=== PATIENT | male | born 1985 | race Caucasian/White ===

== ENCOUNTER 2020-01-19 15:48 | Emergency (ER) | payer OTHER, SELFPAY ==
[2020-01-19] VITALS (17 sets, daily range): BP systolic 135–152; BP diastolic 77–100; PULSE 78–111; RESP 11–33; TEMP 36.4; O2SAT 98–100; BMI 26.1
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
[2020-01-19] MEDS: SODIUM CHLORIDE 0.9% 1,000 ML 125 ML IV (18:44)
[2020-01-19] MEDS: HYDROMORPHONE 1 MG INJ IV (18:45)
[2020-01-19] MEDS: ONDANSETRON 4 MG/2 ML INJ IV (18:45)
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
[2020-01-19] MEDS: propofoL 200 MG/20 ML VIAL 100 MG IV (19:59)
--- NOTE | 2020-01-19 20:00 | DI.CT.S_ITS ---
PROCEDURE: CT LE LT W CON INDICATIONS: Left ankle fx TECHNIQUE: Noncontrast 3-mm axial sections acquired from the distal tibial shaft to the talar dome, with coronal and sagittal reformats.. COMPARISON: None. FINDINGS: Image quality: Excellent. Bones: Highly comminuted fractures of the medial malleolus with mild displacement of fracture fragments. Articular step-off of the dominant medial malleolus fracture fragment measures approximately 5 millimeters. There are also mildly comminuted and mildly displaced fractures along the lateral aspect of the distal tibia articular surface at the superolateral aspect of the ankle mortise. There is approximately 3-4 millimeter displacement of the dominant fracture fragment with 1-2 millimeters articular step-off displaced fracture of the posterior malleolus with approximately 2 millimeter articular step-off and [id number] comminution. Markedly comminuted fracture of the distal fibula with moderate angulation and displacement, apex posterior. No fracture of the proximal tibia or fibula. Tiny fracture fragments are present within the anterior joint space overlying the talar neck and anterior tibiotalar joint recess. There is no talar fracture. Intrinsic bones of the foot are intact. Talocalcaneal joints are maintained. Soft tissues: Circumferential soft tissue swelling about the distal tibia/fibula and ankle. Moderate to large volume ankle joint effusion. No radiopaque foreign body. IMPRESSION: Trimalleolar fracture dislocation of the distal tibia and distal fibula with disruption of the ankle mortise and tibial fibular syndesmosis. Intra-articular extension of the medial malleolus, posterior malleolus, and medial tibial fractures, each with articular step-off. Multiple tiny ossific intra-articular loose bodies present. Dictated by: Yash Rainey M.D. on 01/19/2020 at 20:43 Approved by: Yash Rainey M.D. on 01/19/2020 at 20:50
[2020-01-19 20:29] LABS: Add Manual Diff / Slide Review NO; Basophils Absolute Auto 0 /uL (0-100); Basophils Percent Auto 0.2 % (0-2); Eosinophils Absolute Auto 0 /uL (0-450); Eosinophils Percent Auto 0.1 % (2-4); Hematocrit 45.2 % (41-53); Hemoglobin 15.3 g/dL (13.5-17.5); Lymphocytes Absolute Auto 800 /uL (1100-4500); Lymphocytes Percent Auto 6.3 % (25-40); Mean Corpuscular HGB Conc 33.9 % (30-36); Mean Corpuscular Volume 88.7 fL (80-100); Monocytes Absolute Auto 500 /uL (0-900); Monocytes Percent Auto 3.7 % (3-14); Neutrophils Absolute Auto 11900 /uL (1500-7000); Neutrophils Percent Auto 89.7 % (50-75); Platelet Count 245 X10^3/uL (150-400); Red Cell Distribution Width 12.4 % (11.6-14.8); White Blood Cell Count 13.3 X10^3/uL (4.5-11.0)
[2020-01-19] MEDS: HYDROCODONE/ACET 5/325 PREPACK 1 BOTTLE MISC (20:34)
[2020-01-19 20:39] LABS: BUN Creatinine Ratio 10.9 (6-22); Blood Urea Nitrogen 13 mg/dL (9-20); Calcium 9.3 mg/dL (8.4-10.2); Carbon Dioxide 23 mmol/L (22-32); Chloride 105 mmol/L (98-107); Estimated Glomerular Filt Rate > 60.0 mL/min (>60); Glucose 118 mg/dL (70-100); HEMOLYSIS < 15 (0-50); Potassium 3.8 mmol/L (3.4-5.1); Sodium 139 mmol/L (137-145)
[2020-01-21 11:09] LABS: COVID19 Sendout Not Detected (Not Detected)
== END 2020-01-19 20:52 | disposition home or self-care (01) ==
PROVIDERS: Emergency Provider Emergency Medicine
DX: S82.852A Displaced trimalleolar fracture of left lower leg, initial encounter for closed fracture (principal); S93.05XA Dislocation of left ankle joint, initial encounter; S90.512A Abrasion, left ankle, initial encounter; V19.9XXA Pedal cyclist (driver) (passenger) injured in unspecified traffic accident, initial encounter
CPT/HCPCS: 27818; 29505; 36415; 73600; 73610; 73700; 80048; 85025; 87635; 94770; 96361; 96374; 96375; 99152; 99285; J1170; J2405; J2704

== ENCOUNTER 2020-01-21 08:58 | Day surgery (SDC) | payer OTHER, SELFPAY ==
[2020-01-21] VITALS (12 sets, daily range): BP systolic 116–138; BP diastolic 66–87; PULSE 78–98; RESP 14–17; TEMP 36.6–37.2; O2SAT 95–98; BMI 25.9
--- NOTE | 2020-01-21 | DI.RAD.S_ITS ---
PROCEDURE: XR ANKLE LT MIN 3V INDICATIONS: FX REPAIR TECHNIQUE: 3 views of the ankle were acquired. COMPARISON: [facility], CR, XR ANKLE LT 2V, 01/19/2020, 18:52. FINDINGS: Bones: Improved alignment status post ORIF of trimalleolar left ankle fracture. Multiple fixation plates and screws have been placed which are in expected positions. No periprosthetic fractures. Ankle mortise is symmetric. Soft tissues: No tibiotalar joint effusion. Achilles tendon appears normal. IMPRESSION: Improved alignment status post ORIF of trimalleolar left ankle fracture. Dictated by: Jose Kirk [facility] Interpreted: Yan Avila MD on 01/21/2020 at 14:42 Approved by: Yan Avila M.D. on 01/21/2020 at 16:22
[2020-01-21] MEDS: ACETAMINOPHEN 325 MG TABLET 975 MG PO (09:25)
[2020-01-21] MEDS: SCOPOLAMINE 1 PATCH TOP (09:25)
[2020-01-21] MEDS: LACTATED RINGERS 1,000 ML 42 ML IV ×2 (09:26→12:24)
--- NOTE | 2020-01-21 10:12 | PM.PREOP ---
Pre-operative Note COVID-19 COVID-19 status: Result pending Interval Note History & Physical reviewed/Exam performed by Physician: Yes Changes to H&P: No
[2020-01-21 10:18] LABS: COVID19 -Nasal RAPID Negative (Negative)
[2020-01-21] MEDS: CEFAZOLIN 2 GM/100 ML FROZ.PIGGY IV (10:40)
--- NOTE | 2020-01-21 11:33 | SUR.OPER ---
Supine on padded OR bed, head on pillow, arms secured on padded arm boards at <90 degrees abduction, legs uncrossed, safety belt at thigh, tape over blanket over lower legs.
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
[2020-01-21] MEDS: BUPIVACAINE 0.25% W/ EPI 30 ML VIAL INJ (11:40)
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
--- NOTE | 2020-01-21 16:46 | SUR.PHASEII ---
1620 assumed care from Beatriz Blanco, RN. Pt awake, drowsy, talking with his mom at the bedside. Denies pain/nausea. Has a Scope patch, confirmed that they are aware of how to care/remove it. 1635 Pt has his crutches, ice pack given. Stable.
== END 2020-01-21 16:35 | disposition home or self-care (01) ==
PROVIDERS: Referring Provider Orthopaedic Surgery Foot and Ankle Surgery; Visit Provider Orthopaedic Surgery Foot and Ankle Surgery
PROC: (CPT 27827; principal; 2020-01-21 10:15)
DX: S82.852A Displaced trimalleolar fracture of left lower leg, initial encounter for closed fracture (principal); S82.892A Other fracture of left lower leg, initial encounter for closed fracture; S93.432A Sprain of tibiofibular ligament of left ankle, initial encounter; Z11.59 Encounter for screening for other viral diseases; Y93.55 Activity, bike riding
CPT/HCPCS: 27827; 27823; 73610; 76000; 87635; J0330; J0690; J1100; J1170; J1885; J2250; J2405; J2704; J3010

== ENCOUNTER → 2022-07-04 12:08 | Outpatient (CLI) | payer OTHER, SELFPAY ==
[2022-07-04 12:59] LABS: Add Manual Diff / Slide Review NO; Basophils Absolute Auto 0 /uL (0-100); Basophils Percent Auto 0.6 % (0-2); Eosinophils Absolute Auto 100 /uL (0-450); Eosinophils Percent Auto 1.8 % (2-4); Hematocrit 46.7 % (41-53); Hemoglobin 16.1 g/dL (13.5-17.5); Lymphocytes Absolute Auto 800 /uL (1100-4500); Lymphocytes Percent Auto 24.1 % (25-40); Mean Corpuscular HGB Conc 34.5 % (30-36); Mean Corpuscular Hemoglobin 30.1 PG (26-34); Mean Corpuscular Volume 87.4 fL (80-100); Monocytes Absolute Auto 300 /uL (0-900); Monocytes Percent Auto 8.7 % (3-14); Neutrophils Absolute Auto 2200 /uL (1500-7000); Neutrophils Percent Auto 64.8 % (50-75); Platelet Count 191 X10^3/uL (150-400); Red Blood Cell Count 5.34 X10^6/uL (4.5-5.9); Red Cell Distribution Width 12.6 % (11.6-14.8); White Blood Cell Count 3.5 X10^3/uL (4.5-11.0)
[2022-07-04 13:11] LABS: Hemoglobin A1C% w Est Avg Glu 5.3 % (4.0-6.0)
[2022-07-04 13:41] LABS: Alanine Aminotransferase 19 IU/L (<50); Albumin 4.9 g/dL (3.5-5.0); Albumin Globulin Ratio 1.5 (1.0-2.8); Alkaline Phosphatase 65 U/L (38-126); Aspartate Aminotransferase 20 IU/L (17-59); BUN Creatinine Ratio 15.8 (6-22); Bilirubin Total 0.9 mg/dL (0.2-1.3); Blood Urea Nitrogen 16 mg/dL (9-20); Calcium 9.2 mg/dL (8.4-10.2); Carbon Dioxide 27 mmol/L (22-32); Chloride 102 mmol/L (98-107); Cholesterol 197 mg/dL (140-199); Estimated Glomerular Filt Rate > 60 mL/min (>60); Globulin 3.2 g/dL (1.7-4.1); Glucose 92 mg/dL (70-100); HDL Cholesterol 31 mg/dL (40-60); HEMOLYSIS < 15 (0-50); LDL Cholesterol Calculated 119 mg/dL (<100); Potassium 4.3 mmol/L (3.4-5.1); Sodium 142 mmol/L (137-145); Total Protein 8.1 g/dL (6.3-8.2); Triglycerides 235 mg/dL (35-150)
== END ==
PROVIDERS: PCP Family Medicine; Referring Provider Family Medicine; Visit Provider Family Medicine
DX: D72.829 Elevated white blood cell count, unspecified (principal); F41.9 Anxiety disorder, unspecified; R73.9 Hyperglycemia, unspecified
CPT/HCPCS: 36415; 80053; 80061; 83036; 84443; 85025

== ENCOUNTER → 2023-11-08 11:29 | Outpatient (CLI) | payer OTHER, SELFPAY ==
[2023-11-08 12:32] LABS: Add Manual Diff / Slide Review NO; Basophils Absolute Auto 0 /uL (0-100); Basophils Percent Auto 0.4 % (0-2); Eosinophils Absolute Auto 100 /uL (0-450); Eosinophils Percent Auto 2.4 % (2-4); Hematocrit 44.2 % (41-53); Hemoglobin 15.4 g/dL (13.5-17.5); Lymphocytes Absolute Auto 1200 /uL (1100-4500); Lymphocytes Percent Auto 31.5 % (25-40); Mean Corpuscular HGB Conc 34.9 % (30-36); Mean Corpuscular Hemoglobin 30.8 PG (26-34); Mean Corpuscular Volume 88.2 fL (80-100); Monocytes Absolute Auto 300 /uL (0-900); Monocytes Percent Auto 8.2 % (3-14); Neutrophils Absolute Auto 2200 /uL (1500-7000); Neutrophils Percent Auto 57.5 % (50-75); Platelet Count 193 X10^3/uL (150-400); Red Blood Cell Count 5.01 X10^6/uL (4.5-5.9); Red Cell Distribution Width 12.3 % (11.6-14.8); White Blood Cell Count 3.8 X10^3/uL (4.5-11.0)
[2023-11-08 12:58] LABS: Cholesterol 201 mg/dL (140-199); HDL Cholesterol 36 mg/dL (40-60); LDL Cholesterol Calculated 125 mg/dL (<100); Triglycerides 200 mg/dL (35-150)
[2023-11-08 13:28] LABS: TSH w/ Reflex to FT4 1.35 uIU/mL (0.47-4.68)
[2023-11-08 15:34] LABS: Creatinine Urine Random 176.02 mg/dL
[2023-11-08 15:37] LABS: Microalbumin Urine Random 0.7 mg/dL (0-1.6)
[2023-11-13 07:21] LABS: Apolipoprotein B 106 mg/dL (<90)
== END ==
LOC: LAB 11:30
PROVIDERS: PCP Family Medicine; Referring Provider Family Medicine; Visit Provider Family Medicine
DX: E78.5 Hyperlipidemia, unspecified (principal); F41.9 Anxiety disorder, unspecified; Z00.00 Encounter for general adult medical examination without abnormal findings; D72.829 Elevated white blood cell count, unspecified; R73.9 Hyperglycemia, unspecified
CPT/HCPCS: 36415; 80061; 82043; 82172; 82570; 84443; 85025